=== PATIENT | male | born 1955 | race Caucasian/White ===

== ENCOUNTER 2019-02-26 01:20 | Inpatient (IN) ==
[2019-02-26] MEDS ORDERED: *HR* Dextrose 50 % in Water (Syg) 50 ML SYRINGE IVP STA (02:59)
[2019-02-26] MEDS ORDERED: MetroNIDAZOLE 500 MG/100 ML 500 MG/100 ML BAG IVPB SCH (03:00)
[2019-02-26] MEDS ORDERED: Vancomycin (wt based) 1,000 MG VIAL IVPB SCH (03:00)
[2019-02-26 03:30] LABS: ABG Base Excess -2 mEq/L (-2 to 3); ABG HCO3 22 mEq/L (21-27); ABG Oxygen Saturation 100 % (95-98); ABG PCO2 35 mmHg (35-45); ABG PH 7.41 pH Units (7.32-7.45); ABG PO2 298 mmHg (85-104); ABG TCO2 23 mEq/L (20-26); Blood Gas VT 500 cc
[2019-02-26] MEDS: Vasopressin 40 UNIT in D5% in Water 100 ML IVC SCH ×2 (03:48→22:01)
[2019-02-26 03:49] LABS: Hematocrit 26.7 % (37.5-50.1); Red Cell Distribution Width 17.5 % (11.5-14.5)
[2019-02-26 03:50] LABS: Hemoglobin 8.8 g/dL (12.9-16.9); Immature Granulocytes % 1.6 % (0-4); Lymphocytes # 0.2 K/mcL (0.6-4.6); Lymphocytes % 33.3 %; Mean Corpuscular Hemoglobin 27.9 pg (28.0-33.3); Mean Corpuscular Volume 84.8 fL (83.0-100.0); Mean Platelet Volume 10.4 fL (9.4-12.4); Monocytes % 3.2 %; Neutrophils # 0.4 K/mcL (1.6-8.9); Nucleated Red Blood Cells 3.2 /100 WBC (0); Red Blood Count 3.15 M/mcL (4.19-5.50); Segmented Neutrophils % 61.9 %
[2019-02-26] MEDS: 0.9 % Sodium Chloride 1,000 ML IVC SCH ×2 (03:51→04:44)
[2019-02-26 03:58] LABS: White Blood Count 0.6 K/mcL (4.3-11.1)
[2019-02-26 03:59] LABS: Platelet Count 77 K/mcL (140-400)
[2019-02-26] MEDS: FentaNYL (PF) 1,000 MCG in 0.9 % Sodium Chloride 80 ML IVC SCH ×3 (04:00→21:10)
[2019-02-26 04:06] LABS: Anisocytosis 1+ (Not Present); Platelet Estimate Slight Decrease (Normal); Polychromasia 1+ (Not Present)
[2019-02-26 04:08] LABS: Albumin 2.3 g/dL (3.5-5.7); Bilirubin,Direct 1.3 mg/dL (0.0-0.2); Bilirubin,Indirect 0.5 mg/dL (0.0-1.0); Bilirubin,Total 1.8 mg/dL (0.3-1.0); Calcium 7.4 mg/dL (8.6-10.3); Globulin 2.3 g/dL (2.4-3.5); Magnesium 1.9 mg/dL (1.6-2.6); Phosphorous 3.3 mg/dL (2.7-4.5); Potassium 3.7 mEq/L (3.5-5.1); Total Protein 4.6 g/dL (6.4-8.9); Troponin I 0.08 ng/mL (< 0.04)
[2019-02-26 04:20] LABS: Thyroid Stimulating Hormone 0.27 mcIU/mL (0.340-5.600)
[2019-02-26] MEDS: Norepinephrine 4 MG in 0.9 % Sodium Chloride 250 ML IVC SCH ×2 (04:20→16:13)
[2019-02-26] MEDS: Cefepime HCl 2,000 MG in Water for inj. (sterile) 20 ML IVP SCH ×2 (04:57→05:56)
[2019-02-26] MEDS ORDERED: Calcium Gluconate 1gm/50mL 1 GM/50 ML BAG IVPB ONE (05:00)
[2019-02-26] MEDS ORDERED: Azithromycin 500 MG in 0.9 % Sodium Chloride 250 ML IVPB SCH (05:00)
[2019-02-26] MEDS ORDERED: Cefepime HCl 2,000 MG in Water for inj. (sterile) 20 ML IVP SCH ×2 (05:00→08:00)
[2019-02-26] MEDS ORDERED: Naloxone 0.4 MG/ML INJ IVP PRN (05:30)
[2019-02-26 05:39] LABS: Triiodothyronine (T3) Free 1.82 pg/mL (2.50-3.90)
[2019-02-26 06:25] LABS: Bilirubin,Urine Negative (Negative); Blood,Urine Moderate (Negative); Clarity,Urine Cloudy (Clear); Color,Urine Yellow (Yellow); Glucose,Urine (UA) Normal (Normal); Ketones,Urine Negative (Negative); Leukocyte Esterase,Urine Negative (Negative); Nitrite,Urine Negative (Negative); Protein,Urine 30 mg/dL (Neg-Trace); Specific Gravity,Urine 1.015 (1.010-1.025); Urobilinogen,Urine Normal (Normal)
[2019-02-26 06:27] LABS: Hyaline Casts,Urine None Seen per lpf (None-Few)
[2019-02-26] MEDS ORDERED: 0.9 % Sodium Chloride 500 ML IVC SCH (06:30)
[2019-02-26 06:37] LABS: Sodium, Urine 92.8 mEq/L
[2019-02-26 06:47] LABS: Squamous Epithelial Cell,Urine Few per lpf (None-Few); WBC,Urine 0-3 per hpf (0-3)
[2019-02-26 06:48] LABS: Bacteria,Urine Moderate per hpf (None-Few)
[2019-02-26] MEDS ORDERED: Artificial Tears SOLN 15 ML BOTTLE BOTH EYES PRN (06:55)
[2019-02-26] MEDS ORDERED: Aminoglycoside Consult 1 EACH MC ONE (07:34)
[2019-02-26] MEDS: Chlorhexidine Rinse 15 ML MOUTHWASH MM SCH ×2 (08:08→20:01)
[2019-02-26] MEDS: Artificial Tears SOLN 15 ML BOTTLE BOTH EYES SCH ×5 (08:08→23:01)
[2019-02-26] MEDS: Hydrocortisone Sodium Succ 100 MG/2 ML VIAL IVP SCH ×4 (08:08→23:01)
[2019-02-26] MEDS: Piperacillin/Tazobactam 3.375 GM in 0.9 % Sodium Chloride Mini Bag 100 ML IVPB SCH ×3 (08:46→23:01)
[2019-02-26] MEDS: Pantoprazole 40 MG VIAL IVP SCH (09:06)
[2019-02-26 10:07] LABS: ABG Base Excess -4 mEq/L (-2 to 3); ABG HCO3 21 mEq/L (21-27); ABG Oxygen Saturation 89 % (95-98); ABG PCO2 35 mmHg (35-45); ABG PH 7.38 pH Units (7.32-7.45); ABG PO2 57 mmHg (85-104); ABG TCO2 22 mEq/L (20-26); Blood Gas Modality ASSIST CONTROL; Blood Gas VT 500 cc
[2019-02-27] MEDS: Artificial Tears SOLN 15 ML BOTTLE BOTH EYES SCH ×6 (03:01→23:47)
[2019-02-27 03:12] LABS: INR 2.5; Prothrombin Time 28.6 Seconds (9.4-12.1)
[2019-02-27 03:28] LABS: Phosphorous 5.2 mg/dL (2.7-4.5)
[2019-02-27 03:29] LABS: Alanine Aminotransferase 365 Units/L (7-52); Albumin 2.2 g/dL (3.5-5.7); Albumin/Globulin Ratio 0.9 (1.1-2.2); Alkaline Phosphatase 79 Units/L (34-104); Aspartate Amino Transferase 210 Units/L (13-39); BUN/Creatinine Ratio 48 (6-26); Bilirubin,Total 1.6 mg/dL (0.3-1.0); Blood Urea Nitrogen 68 mg/dL (8-23); Calcium 7.3 mg/dL (8.6-10.3); Carbon Dioxide 20 mEq/L (23-29); Chloride 115 mEq/L (98-107); Globulin 2.4 g/dL (2.4-3.5); Glucose 93 mg/dL (70-105); Osmolality,Calculated 325 (280-300); Potassium 3.7 mEq/L (3.5-5.1); Sodium 148 mEq/L (136-145); Total Protein 4.6 g/dL (6.4-8.9); eGFR For African Americans > 60 (> 60); eGFR For Non-African Americans 51 (> 60)
[2019-02-27 04:14] LABS: Hemoglobin 7.8 g/dL (12.9-16.9); Immature Granulocytes % 4.8 % (0-4); Lymphocytes # 0.1 K/mcL (0.6-4.6); Lymphocytes % 47.6 %; Mean Corpuscular HGB Conc 32.5 g/dL (31.6-35.5); Mean Corpuscular Hemoglobin 28.1 pg (28.0-33.3); Mean Corpuscular Volume 86.3 fL (83.0-100.0); Monocytes % 4.8 %; Neutrophils # 0.1 K/mcL (1.6-8.9); Nucleated Red Blood Cells 33.3 /100 WBC (0); Red Blood Count 2.78 M/mcL (4.19-5.50); Red Cell Distribution Width 18.1 % (11.5-14.5); Segmented Neutrophils % 42.8 %
[2019-02-27 04:18] LABS: Platelet Count 36 K/mcL (140-400); White Blood Count 0.2 K/mcL (4.3-11.1)
[2019-02-27] MEDS: Hydrocortisone Sodium Succ 100 MG/2 ML VIAL IVP SCH ×2 (05:03→11:20)
[2019-02-27 05:08] LABS: ABG Base Excess -4 mEq/L (-2 to 3); ABG HCO3 21 mEq/L (21-27); ABG Oxygen Saturation 90 % (95-98); ABG PCO2 41 mmHg (35-45); ABG PH 7.33 pH Units (7.32-7.45); ABG PO2 63 mmHg (85-104); ABG TCO2 23 mEq/L (20-26); Blood Gas VT 500 cc
[2019-02-27] MEDS: Piperacillin/Tazobactam 3.375 GM in 0.9 % Sodium Chloride Mini Bag 100 ML IVPB SCH ×3 (07:55→23:46)
[2019-02-27] MEDS: Pantoprazole 40 MG VIAL IVP SCH (07:56)
[2019-02-27] MEDS: Chlorhexidine Rinse 15 ML MOUTHWASH MM SCH ×2 (07:56→19:40)
[2019-02-27] MEDS: FentaNYL (PF) 1,000 MCG in 0.9 % Sodium Chloride 80 ML IVC SCH (11:21)
[2019-02-27 12:59] LABS: ABG Base Excess -4 mEq/L (-2 to 3); ABG HCO3 20 mEq/L (21-27); ABG Oxygen Saturation 91 % (95-98); ABG PCO2 35 mmHg (35-45); ABG PH 7.37 pH Units (7.32-7.45); ABG PO2 62 mmHg (85-104); ABG TCO2 22 mEq/L (20-26); Blood Gas VT 550 cc
[2019-02-27 15:00] LABS: INR 2.1; Prothrombin Time 24.4 Seconds (9.4-12.1)
[2019-02-27 15:03] LABS: Hematocrit 26.2 % (37.5-50.1); Hemoglobin 8.9 g/dL (12.9-16.9); Lymphocytes # 0.1 K/mcL (0.6-4.6); Lymphocytes % 41.7 %; Mean Corpuscular Hemoglobin 28.3 pg (28.0-33.3); Mean Corpuscular Volume 83.4 fL (83.0-100.0); Mean Platelet Volume 12.2 fL (9.4-12.4); Monocytes % 12.5 %; Neutrophils # 0.1 K/mcL (1.6-8.9); Red Blood Count 3.14 M/mcL (4.19-5.50); Red Cell Distribution Width 18.9 % (11.5-14.5); Segmented Neutrophils % 45.8 %
[2019-02-27 15:06] LABS: Platelet Count 42 K/mcL (140-400)
[2019-02-27 15:07] LABS: White Blood Count 0.2 K/mcL (4.3-11.1)
[2019-02-27 15:30] LABS: Platelet Estimate Decreased (Normal)
[2019-02-27 15:31] LABS: Anisocytosis 2+ (Not Present)
[2019-02-27] MEDS ORDERED: Albumin 25% 25gram/100mL 25 GM/100 ML IV.SOLN IVPB ONE (15:34)
[2019-02-27] MEDS: Dexamethasone 10 MG/ML VIAL IVP SCH ×2 (16:57→23:47)
[2019-02-28] MEDS ORDERED: *HR* Metoprolol 5 MG/5 ML VIAL IVP ONE (01:25)
[2019-02-28] MEDS: Artificial Tears SOLN 15 ML BOTTLE BOTH EYES SCH ×6 (02:50→23:08)
[2019-02-28 03:26] LABS: Eosinophils % 2.9 %; Hematocrit 25.3 % (37.5-50.1); Hemoglobin 8.4 g/dL (12.9-16.9); Immature Granulocytes % 8.6 % (0-4); Lymphocytes # 0.2 K/mcL (0.6-4.6); Lymphocytes % 45.7 %; Mean Corpuscular HGB Conc 33.2 g/dL (31.6-35.5); Mean Corpuscular Hemoglobin 27.7 pg (28.0-33.3); Mean Corpuscular Volume 83.5 fL (83.0-100.0); Monocytes % 11.4 %; Neutrophils # 0.1 K/mcL (1.6-8.9); Nucleated Red Blood Cells 28.6 /100 WBC (0); Red Blood Count 3.03 M/mcL (4.19-5.50); Red Cell Distribution Width 19.2 % (11.5-14.5); Segmented Neutrophils % 31.4 %
[2019-02-28 03:27] LABS: INR 1.7; Prothrombin Time 19.7 Seconds (9.4-12.1)
[2019-02-28 03:28] LABS: Monocytes # 0.1 K/mcL (0.0-1.3); Platelet Count 42 K/mcL (140-400)
[2019-02-28 03:30] LABS: White Blood Count 0.4 K/mcL (4.3-11.1)
[2019-02-28 03:44] LABS: Albumin 2.6 g/dL (3.5-5.7); Bilirubin,Total 2.1 mg/dL (0.3-1.0); Calcium 7.7 mg/dL (8.6-10.3); Globulin 2.5 g/dL (2.4-3.5); Potassium 3.8 mEq/L (3.5-5.1); Total Protein 5.1 g/dL (6.4-8.9)
[2019-02-28] MEDS: FentaNYL (PF) 1,000 MCG in 0.9 % Sodium Chloride 80 ML IVC SCH ×2 (04:08→19:47)
[2019-02-28 04:09] LABS: Anisocytosis 1+ (Not Present); Ovalocytes 3+ (Not Present); Platelet Estimate Marked Decrease (Normal); Target Cells 2+ (Not Present)
[2019-02-28] MEDS: Vasopressin 40 UNIT in D5% in Water 100 ML IVC SCH ×2 (04:09→20:08)
[2019-02-28] MEDS: Norepinephrine 4 MG in 0.9 % Sodium Chloride 250 ML IVC SCH ×2 (04:45→23:09)
[2019-02-28 04:55] LABS: ABG Base Excess -7 mEq/L (-2 to 3); ABG HCO3 19 mEq/L (21-27); ABG Oxygen Saturation 91 % (95-98); ABG PCO2 41 mmHg (35-45); ABG PH 7.28 pH Units (7.32-7.45); ABG PO2 68 mmHg (85-104); ABG TCO2 20 mEq/L (20-26); Blood Gas Modality ASSIST CONTROL; Blood Gas VT 550 cc
[2019-02-28] MEDS: Pantoprazole 40 MG VIAL IVP SCH (08:26)
[2019-02-28] MEDS: Piperacillin/Tazobactam 3.375 GM in 0.9 % Sodium Chloride Mini Bag 100 ML IVPB SCH ×2 (08:26→15:47)
[2019-02-28] MEDS: Chlorhexidine Rinse 15 ML MOUTHWASH MM SCH ×2 (08:26→20:08)
[2019-02-28] MEDS ORDERED: Albumin 25% 25gram/100mL 25 GM/100 ML IV.SOLN IVPB ONE (09:04)
[2019-02-28] MEDS: Dexamethasone 10 MG/ML VIAL IVP SCH ×2 (09:11→20:08)
[2019-02-28] MEDS ORDERED: Aminoglycoside Consult 1 EACH MC ONE (11:29)
[2019-02-28] MEDS: D5% in Water 1,000 ML IVC SCH (11:31)
[2019-02-28 15:59] LABS: Bacteria,Urine None Seen per hpf (None-Few); Bilirubin,Urine Negative (Negative); Blood,Urine Large (Negative); Clarity,Urine Cloudy (Clear); Color,Urine Yellow (Yellow); Glucose,Urine (UA) Normal (Normal); Hyaline Casts,Urine None Seen per lpf (None-Few); Ketones,Urine Trace mg/dL (Negative); Leukocyte Esterase,Urine Negative (Negative); Nitrite,Urine Negative (Negative); Protein,Urine 100 mg/dL (Neg-Trace); Sodium, Urine 45.1 mEq/L; Specific Gravity,Urine 1.018 (1.010-1.025); Squamous Epithelial Cell,Urine Many per lpf (None-Few); Urobilinogen,Urine Normal (Normal)
[2019-02-28 16:42] LABS: Amorphous Sediment,Urine Few per hpf (Few)
[2019-02-28 16:43] LABS: Uric Acid Crystals,Urine Present
[2019-02-28 18:52] LABS: Calcium 7.6 mg/dL (8.6-10.3); Potassium 3.4 mEq/L (3.5-5.1)
[2019-02-28 18:54] LABS: Uric Acid 8.7 mg/dL (2.3-7.6)
[2019-02-28] MEDS: Piperacillin/Tazobactam 3.375 GM in D5% in Water (Mini-Bag+) 100 ML IVPB SCH (23:07)
[2019-03-01 03:16] LABS: Mean Corpuscular Hemoglobin 27.7 pg (28.0-33.3)
[2019-03-01 03:17] LABS: Hematocrit 23.1 % (37.5-50.1); Hemoglobin 7.9 g/dL (12.9-16.9); Lymphocytes # 0.1 K/mcL (0.6-4.6); Mean Corpuscular HGB Conc 34.2 g/dL (31.6-35.5); Mean Corpuscular Volume 81.1 fL (83.0-100.0); Mean Platelet Volume 12.4 fL (9.4-12.4); Nucleated Red Blood Cells 12.9 /100 WBC (0); Red Blood Count 2.85 M/mcL (4.19-5.50); Red Cell Distribution Width 19.2 % (11.5-14.5)
[2019-03-01] MEDS: Artificial Tears SOLN 15 ML BOTTLE BOTH EYES SCH ×2 (03:24→08:31)
[2019-03-01 03:30] LABS: Calcium 7.6 mg/dL (8.6-10.3); Potassium 3.3 mEq/L (3.5-5.1)
[2019-03-01 03:36] LABS: INR 1.3
[2019-03-01 03:46] LABS: Platelet Count 23 K/mcL (140-400); White Blood Count 0.7 K/mcL (4.3-11.1)
[2019-03-01 04:55] LABS: Monocytes # 0.1 K/mcL (0.0-1.3); Neutrophils # 0.5 K/mcL (1.6-8.9)
[2019-03-01 04:58] LABS: Anisocytosis 2+ (Not Present); Platelet Estimate Marked Decrease (Normal); Polychromasia 2+ (Not Present)
[2019-03-01 04:59] LABS: Large Platelets Present (Not Present)
[2019-03-01] MEDS: D5% in Water 1,000 ML IVC SCH (05:24)
[2019-03-01 05:48] LABS: ABG Base Excess -5 mEq/L (-2 to 3); ABG HCO3 21 mEq/L (21-27); ABG Oxygen Saturation 95 % (95-98); ABG PCO2 40 mmHg (35-45); ABG PH 7.32 pH Units (7.32-7.45); ABG PO2 81 mmHg (85-104); ABG TCO2 22 mEq/L (20-26); Blood Gas Modality ASSIST CONTROL; Blood Gas VT 200 cc
[2019-03-01] MEDS: Piperacillin/Tazobactam 3.375 GM in D5% in Water (Mini-Bag+) 100 ML IVPB SCH (08:29)
[2019-03-01] MEDS: Dexamethasone 10 MG/ML VIAL IVP SCH (08:30)
[2019-03-01] MEDS: Pantoprazole 40 MG VIAL IVP SCH (08:30)
[2019-03-01] MEDS: Chlorhexidine Rinse 15 ML MOUTHWASH MM SCH (08:30)
[2019-03-01] MEDS ORDERED: Vancomycin 750 MG in D5% in Water 250 ML IVPB SCH (12:00)
[2019-03-01 12:03] VITALS: BP 147/65
== END 2019-03-01 11:30 | disposition expired | DRG 871 ==
LOC: ICNU
PROVIDERS: ADMIT Family Medicine; ATTEND Family Medicine